=== PATIENT | male | born 2000 | race African-American/Black ===

== ENCOUNTER 2022-05-02 05:07 | Inpatient (IN) | payer MEDICAID ==
[~2022-05-02] VITALS: Ht 182.9 cm; Wt 92.0 kg
[2022-05-02 06:41] LABS: COVID AG,FIA SOURCE NASOPHARYNGEAL
[2022-05-02] MEDS ORDERED: MORPHINE SULFATE 2 MG/ML SYRINGE IVP ONE (06:45)
[2022-05-02] MEDS ORDERED: KETOROLAC TROMETHAMINE 30 MG/ML VIAL IVP ONE (06:45)
[2022-05-02] MEDS ORDERED: SODIUM CHLORIDE 0.9% 1,000 ML IV ONE ×3 (06:45→09:30)
[2022-05-02 07:07] LABS: BASOPHILS % (AUTO) 0.3 % (0.0-2.0); EOSINOPHILS % (AUTO) 0.1 % (1.0-6.0); HEMATOCRIT 44.1 % (41-53); HEMOGLOBIN 15.1 g/dL (13.5-17.5); LYMPHOCYTES # (AUTO) 1.8 K/uL (1.0-4.8); LYMPHOCYTES % (AUTO) 6.1 % (22.0-44.0); MEAN CORPUSCULAR HEMOGLOBIN 30.3 pg (26.0-34.0); MEAN CORPUSCULAR HGB CONC 34.1 G/dL (31.0-37.0); MEAN CORPUSCULAR VOLUME 89 fL (80-100); MONOCYTES % (AUTO) 6.6 % (2.0-9.0); NEUTROPHILS # (AUTO) 25.8 K/uL (1.8-7.7); PLATELET COUNT (AUTO) 302 K/uL (150-450); RED BLOOD CELL COUNT(AUTO) 4.98 MIL/uL (4.50-5.90); RED CELL DISTRIBUTION WIDTH 14.4 % (11.5-14.5)
[2022-05-02 07:13] LABS: NEUTROPHILS % (AUTO) 86.9 % (40.0-70.0)
[2022-05-02] MEDS ORDERED: IOHEXOL 350 MG/ML 100 ML VIAL ONE (07:14)
[2022-05-02] MEDS ORDERED: SODIUM CHLORIDE 0.9% 100 ML ONE (07:14)
[2022-05-02 07:27] LABS: INFLUENZA TYPE A NEGATIVE FOR TYPE A (NEGATIVE); INFLUENZA TYPE B NEGATIVE FOR TYPE B (NEGATIVE)
[2022-05-02 07:29] LABS: ANION GAP 14 mmol/L (8-16); CALCIUM, TOTAL 9.9 mg/dL (8.8-10.5); CARBON DIOXIDE 23 mmol/L (22-29); CHLORIDE 97 mmol/L (98-107); CREATININE 0.87 mg/dL (0.60-1.30); GLOMERULAR FILTR. RATE CALC > 60 mL/min (>60); GLUCOSE,RANDOM 103 mg/dL (70-110); POTASSIUM 3.3 mmol/L (3.5-5.1); SODIUM SERUM 134 mmol/L (136-145); UREA NITROGEN, BLOOD 8 mg/dL (7-18)
[2022-05-02 07:31] LABS: LACTIC ACID 2.2 mmol/L (0.4-2.0)
[2022-05-02 07:34] LABS: ALANINE AMINOTRANSFERASE 43 U/L (12-78); ALBUMIN 3.8 g/dL (3.4-5.0); ALKALINE PHOSPHATASE 94 U/L (46-116); ASPARTATE AMINOTRANSFERASE 32 U/L (15-37); BILIRUBIN,TOTAL 1.6 mg/dL (0.1-1.0); TOTAL PROTEIN, SERUM 8.8 g/dL (6.4-8.2)
[2022-05-02] MEDS ORDERED: POTASSIUM CHL 10 MEQ/WATER 50 ML IV PRN (09:30)
[2022-05-02] MEDS ORDERED: OxyCODONE HCL/ACETAMINOPHEN 5-325 MG TABLET PO PRN (09:30)
[2022-05-02] MEDS ORDERED: MAGNESIUM HYDROXIDE SUSPENSION 30 ML UDCUP PO PRN (09:30)
[2022-05-02] MEDS ORDERED: ACETAMINOPHEN 325 MG TABLET PO PRN (09:30)
[2022-05-02] MEDS ORDERED: SODIUM CHLORIDE 0.9% 800 ML IV ONE (09:30)
[2022-05-02] MEDS ORDERED: PIPERACILLIN/TAZO 3.375 GM/D5W 50 ML IV ONE (09:30)
[2022-05-02] MEDS ORDERED: VANCOMYCIN HCL 1.25 GM in DEXTROSE 5%-WATER 250 ML IV ONE (09:30)
[2022-05-02 12:05] VITALS: BP 136/69
[2022-05-02] MEDS: POTASSIUM CHLORIDE 20 MEQ ER TABLET PO PRN ×2 (13:14→17:35)
[2022-05-02] MEDS: OxyCODONE HCL/ACETAMINOPHEN 5-325 MG TABLET PO PRN ×2 (14:09→21:19)
[2022-05-02] MEDS: PIPERACILLIN/TAZO 3.375 GM/D5W 50 ML IV SCH ×2 (15:11→21:18)
[2022-05-02 15:27] VITALS: BP 130/57
[2022-05-02] MEDS: VANCOMYCIN HCL 1.25 GM in DEXTROSE 5%-WATER 250 ML IV SCH (17:27)
[2022-05-02 19:45] VITALS: BP 130/73
[2022-05-02] MEDS ORDERED: SODIUM CHLORIDE 0.9% 250 ML IV ONE (22:31)
[2022-05-03] MEDS: VANCOMYCIN HCL 1.25 GM in DEXTROSE 5%-WATER 250 ML IV SCH ×2 (00:16→08:49)
[2022-05-03 01:52] LABS: APPEARANCE,URINE HAZY (CLEAR); BILIRUBIN,URINE NEGATIVE (NEGATIVE); GLUCOSE, URINE (UA) NEGATIVE (NEGATIVE); KETONES,URINE 40-60 mg/dL (NEGATIVE); LEUKOCYTE ESTERASE ,URINE NEGATIVE (NEGATIVE); NITRATE,URINE NEGATIVE (NEGATIVE); OCCULT BLOOD,URINE NEGATIVE (NEGATIVE); PROTEIN,URINE 30-70 mg/dL (NEGATIVE); SPECIFIC GRAVITIY, URINE 1.026 (1.003-1.030); UROBILINOGEN,URINE <=1.0 mg/dL (<=1.0)
[2022-05-03] MEDS: PIPERACILLIN/TAZO 3.375 GM/D5W 50 ML IV SCH ×2 (03:26→09:56)
[2022-05-03 04:34] VITALS: BP 123/78
[2022-05-03 07:27] VITALS: BP 114/61
[2022-05-03 07:37] LABS: ANION GAP 7 mmol/L (8-16); CALCIUM, TOTAL 8.8 mg/dL (8.8-10.5); CARBON DIOXIDE 26 mmol/L (22-29); CHLORIDE 102 mmol/L (98-107); CREATININE 0.78 mg/dL (0.60-1.30); GLOMERULAR FILTR. RATE CALC > 60 mL/min (>60); GLUCOSE,RANDOM 126 mg/dL (70-110); POTASSIUM 3.5 mmol/L (3.5-5.1); SODIUM SERUM 135 mmol/L (136-145); UREA NITROGEN, BLOOD 6 mg/dL (7-18); VANCOMYCIN,RANDOM 11.9 mcg/mL (25.0-50.0)
[2022-05-03 08:25] LABS: BASOPHILS % (AUTO) 0.2 % (0.0-2.0); EOSINOPHILS % (AUTO) 0.6 % (1.0-6.0); HEMATOCRIT 38.7 % (41-53); HEMOGLOBIN 12.9 g/dL (13.5-17.5); LYMPHOCYTES # (AUTO) 1.4 K/uL (1.0-4.8); LYMPHOCYTES % (AUTO) 5.9 % (22.0-44.0); MEAN CORPUSCULAR HEMOGLOBIN 29.5 pg (26.0-34.0); MEAN CORPUSCULAR HGB CONC 33.3 G/dL (31.0-37.0); MEAN CORPUSCULAR VOLUME 89 fL (80-100); MONOCYTES # (AUTO) 1.7 K/uL (0.1-1.0); MONOCYTES % (AUTO) 7.3 % (2.0-9.0); NEUTROPHILS # (AUTO) 20.4 K/uL (1.8-7.7); PLATELET COUNT (AUTO) 244 K/uL (150-450); RED BLOOD CELL COUNT(AUTO) 4.36 MIL/uL (4.50-5.90); RED CELL DISTRIBUTION WIDTH 14.5 % (11.5-14.5)
[2022-05-03] MEDS ORDERED: FAMOTIDINE 20 MG TABLET PO SCH (09:00)
[2022-05-03] MEDS ORDERED: BACTDSB PO (12:12)
[2022-05-04] MEDS ORDERED: CLIN-142 PO (05:07)
== END 2022-05-03 15:50 | disposition home or self-care (01) | DRG 383 ==
LOC: EMS 05:13 → 6S 11:55
PROVIDERS: ADMIT Internal Medicine; ATTEND Internal Medicine
DX: L02.411 Cutaneous abscess of right axilla (principal); E87.6 Hypokalemia; Z20.822 Contact with and (suspected) exposure to COVID-19; L03.111 Cellulitis of right axilla
CPT/HCPCS: 71045; 71260; 80048; 80053; 80202; 81003; 83605; 84132; 85025; 87804; 99285; J1885; J2270; J2543; J3370; J7030; J7050; J7060; Q9967; 36415-L1; 36415-TC

== ENCOUNTER 2022-05-03 22:05 | Emergency (ER) | payer MEDICAID ==
[~2022-05-03] VITALS: Ht 177.8 cm; Wt 104.5 kg
[~2022-05-03 22:05] MED LIST: BACTDSB PO
[2022-05-04] MEDS ORDERED: HYDROCODONE/ACETAMINOPHEN 5-325 MG TABLET PO ONE (04:15)
[2022-05-04 04:32] VITALS: BP 129/72
[2022-05-04] MEDS ORDERED: CLINDAMYCIN HCL 150 MG CAPSULE PO ONE (04:45)
[2022-05-04] MEDS ORDERED: CLIN-142 PO (05:07)
== END 2022-05-04 05:32 | disposition home or self-care (01) ==
LOC: EMS 22:14
DX: L73.2 Hidradenitis suppurativa (principal); F12.90 Cannabis use, unspecified, uncomplicated
CPT/HCPCS: 99283